=== PATIENT | male | born 1965 | race Caucasian/White ===

== ENCOUNTER 2017-05-24 07:54 | Day surgery (SDC) | payer BC ==
[~2017-05-24] VITALS: Ht 182.9 cm; Wt 63.2 kg
[2017-05-24] MEDS ORDERED: FLOMAX 0.40.4 MG/CAP PO (08:18)
[2017-05-24] MEDS ORDERED: CLARISPRAY9.9 ML NS (08:20)
[2017-05-24] MEDS ORDERED: PROSCAR 5MG5 MG PO (08:29)
[2017-05-24 08:41] VITALS: BP 105/66; PULSE 76; TEMP 97.7
[2017-05-24 10:00] VITALS: BP 117/72; PULSE 76; TEMP 98.4
[2017-05-24 10:15] VITALS: BP 112/70; PULSE 71
[2017-05-24 10:30] VITALS: BP 117/64; PULSE 60
[2017-05-24 10:45] VITALS: BP 133/99; PULSE 66
[2017-05-24 11:15] VITALS: BP 99/63; PULSE 61
== END 2017-05-24 11:40 | disposition home or self-care (01) ==
LOC: SDCO 07:54
DX: D12.4 Benign neoplasm of descending colon (principal); K64.0 First degree hemorrhoids; K64.4 Residual hemorrhoidal skin tags; N41.1 Chronic prostatitis; K80.80 Other cholelithiasis without obstruction
CPT/HCPCS: OP; J2250; J3010; J7030

== ENCOUNTER 2017-05-24 21:53 | Emergency (ER) | payer BC ==
[~2017-05-24] VITALS: Ht 182.9 cm; Wt 59.1 kg
[~2017-05-24 21:53] MED LIST: CLARISPRAY9.9 ML NS; FLOMAX 0.40.4 MG/CAP PO; PROSCAR 5MG5 MG PO
[2017-05-24 22:09] VITALS: TEMP 98.2
[2017-05-24 22:50] LABS: BASO % 0.1 % (0.0-2.0); EOS % 0.2 % (0-4.0); GRAN # 7.9 (1.4-6.5); GRAN % 86.9 % (42.2-75.2); HEMATOCRIT 41.4 % (42.0-52.0); HEMOGLOBIN 14.1 g/dl (13.5-18.0); LYMPH # 0.8 (1.2-3.4); LYMPH % 8.7 % (20.0-51.0); MEAN CELL VOLUME 89 fl (80.0-100.0); MEAN CORPUSCULAR HEMOGLOBIN 30 pg (27.0-31.0); MEAN CORPUSCULAR HGB CONC 34 g/dl (33.0-37.0); MEAN PLATELET VOLUME 11.2 fl (7.4-10.4); MONO # 0.4 (0.1-0.6); MONO % 3.9 % (1.7-9.3); PLATELET COUNT 195 K/mm3 (130-400); RED BLOOD COUNT 4.65 M/mm3 (4.20-5.60); REDCELL DISTRIBUTION WIDTH-CV 12.4 % (11.5-14.5)
[2017-05-24 23:03] LABS: ALANINE AMINOTRANSFERASE 28 U/L (21-72); ALBUMIN 4.5 gm/dL (3.5-5.0); ALKALINE PHOSPHATASE 59 U/L (50-136); ANION GAP 11 mmol/L (7-16); AST,SGOT 19 U/L (15-37); BILIRUBIN,TOTAL 0.6 mg/dL (0.0-1.0); BLOOD UREA NITROGEN 11 mg/dL (9-20); CALCIUM 9.4 mg/dL (8.4-10.2); CARBON DIOXIDE 26 mmol/L (22-30); CHLORIDE 101 mmol/L (98-107); CREATININE, serum 0.95 mg/dL (0.66-1.25); GLUCOSE 122 mg/dL (74-106); LIPASE 93 U/L (23-300); POTASSIUM 3.6 mmol/L (3.4-5.0); SODIUM 138 mmol/L (137-145); TOTAL PROTEIN 7.1 gm/dL (6.4-8.2)
[2017-05-24 23:10] LABS: C-REACTIVE PROTEIN < 0.5 mg/dL (0.0-0.9)
[2017-05-25 00:58] VITALS: BP 108/65; PULSE 78
== END 2017-05-25 01:00 | disposition home or self-care (01) ==
LOC: COL.ER 21:53
PROVIDERS: Emergency Medicine
DX: K80.50 Calculus of bile duct without cholangitis or cholecystitis without obstruction (principal); F17.210 Nicotine dependence, cigarettes, uncomplicated
CPT/HCPCS: J1170; J2405; J7030; J7050; Q9967

== ENCOUNTER 2017-05-31 10:00 | Day surgery (SDC) | payer BC ==
[~2017-05-31] VITALS: Ht 182.9 cm; Wt 63.0 kg
[2017-05-31] VITALS (7 sets, daily range): BP systolic 103–128; BP diastolic 58–72; PULSE 59–78; TEMP 97.5–98.4
[2017-05-31] MEDS ORDERED: NORCO 325 MG-51 TAB PO (13:41)
[2017-05-31] MEDS ORDERED: COLACE 100100 MG/CAP PO (13:41)
[2017-05-31] MEDS ORDERED: MOTRIN 600600 MG/TAB PO (13:42)
== END 2017-05-31 16:15 | disposition home or self-care (01) ==
LOC: SDCO 10:00
DX: K80.10 Calculus of gallbladder with chronic cholecystitis without obstruction (principal); K21.9 Gastro-esophageal reflux disease without esophagitis; Z68.1 Body mass index [BMI] 19.9 or less, adult; N41.9 Inflammatory disease of prostate, unspecified; Z91.09 Other allergy status, other than to drugs and biological substances
CPT/HCPCS: J1170; J1885; J2405; J2704; J3010; J7120; Q9967

== ENCOUNTER → 2018-08-23 | Outpatient (CLI) | payer BC ==
[~2018-08-23] MED LIST changes: +COLACE 100100 MG/CAP PO; +MOTRIN 600600 MG/TAB PO; +NORCO 325 MG-51 TAB PO
== END ==
LOC: MHCPAIN 08:47
DX: G89.29 Other chronic pain (principal); M79.2 Neuralgia and neuritis, unspecified
CPT/HCPCS: G0463

== ENCOUNTER → 2018-10-03 | Outpatient (CLI) | payer BC | LOC: MHCPAIN 12:56 | DX: G57.82 Other specified mononeuropathies of left lower limb (principal) | CPT/HCPCS: J1040 ==

== ENCOUNTER → 2018-11-06 | Outpatient (CLI) | payer BC | LOC: MHCPAIN 09:13 | DX: G89.29 Other chronic pain (principal); M79.2 Neuralgia and neuritis, unspecified | CPT/HCPCS: G0463 ==